=== PATIENT | female | born 1985 | race Caucasian/White ===

== ENCOUNTER → 2017-10-03 15:56 | Outpatient (CLI) | payer OTHER, SELFPAY ==
[2017-10-03 17:39] LABS: Hematocrit 36.3 % (37-47); Hemoglobin 12.2 g/dl (12.0-15.0); Mean Corp Hgb Conc 33.6 g/gl (32-36); Mean Corpuscular Hgb 30.9 pg (27.0-32.0); Mean Corpuscular Volume 91.9 fL (81-99); Mean Platelet Vol. 11.4 fl (6.2-12.0); Platelet Count 191 K/mm3 (150-450); RBC Distribution Width CV 13.4 % (11.6-14.6); RBC Distribution Width SD 44.7 fl (35.1-43.9); Red Blood Count 3.95 M/mm3 (4.2-5.4); White Blood Count 10.2 K/mm3 (4.4-11.0)
[2017-10-03 17:40] LABS: Scan Indicated on CBC? Y/N NO
[2017-10-03 18:37] LABS: ALB/GLOB Ratio 0.8 RATIO (0.9-2.4); AST(SGOT) 12 U/L (15-37); Alanine Aminotransfer ALT/SGPT 17 U/L (13-56); Albumin, Serum 3.1 g/dL (3.2-5.0); Alkaline Phosphatase 50 U/L (45-117); Anion Gap 9 (5-15); BUN 11 mg/dL (7-18); BUN/Creat Ratio 22.8 RATIO (10-20); Calcium,Total 8.6 mg/dL (8.5-10.1); Chloride 104 mmol/L (98-107); Creatinine, Serum 0.48 mg/dL (0.55-1.02); EST Glomerular Filtration Rate 158 mL/min (>60); Est Glom Filt Rate - Afr Amer 191 mL/min (>60); Globulin 3.7 g/dL (2.2-4.2); Glucose 83 mg/dL (74-106); Potassium 3.7 mmol/L (3.5-5.1); Protein, Total 6.8 g/dL (6.4-8.2); Sodium Level 139 mmol/L (136-145); Thyroid Stim Hormone (TSH) 3.31 uIU/mL (0.358-3.74)
== END ==
PROVIDERS: Visit Provider Obstetrics & Gynecology
DX: R00.2 Palpitations (principal); R00.0 Tachycardia, unspecified
CPT/HCPCS: 36415; 80053; 84443; 85027

== ENCOUNTER → 2017-10-03 16:10 | Outpatient (CLI) | payer OTHER, SELFPAY ==
--- NOTE | 2017-10-03 16:19 | EKG12_ITS ---
Test Reason : PRE OP Blood Pressure : / mmHG Vent. Rate : 086 BPM Atrial Rate : 086 BPM P-R Int : 158 ms QRS Dur : 076 ms QT Int : 360 ms P-R-T Axes : 047 045 -14 degrees QTc Int : 430 ms Sinus rhythm with marked sinus arrhythmia T wave abnormality, consider inferior ischemia Abnormal ECG Confirmed by FLORI BROWN, TOMAS ([id number]), editor at large CHUY APODACA ([id number] on 10/04/2017 1:53:34 PM Referred By: Joan Gregory Confirmed By:TOMAS RUBY MD
== END ==
PROVIDERS: Family Provider Internal Medicine; PCP Internal Medicine; Visit Provider Obstetrics & Gynecology
DX: Z34.82 Encounter for supervision of other normal pregnancy, second trimester (principal); R00.2 Palpitations; R00.0 Tachycardia, unspecified
CPT/HCPCS: 93005; 93225; 93226

== ENCOUNTER → 2017-10-31 12:50 | Outpatient (CLI) | payer OTHER, SELFPAY ==
--- NOTE | 2017-10-31 12:52 | ECHOD_ITS ---
Reason For Study: PALPITATIONS Procedure This was a 2D Doppler, Color Flow transthoracic echocardiogram. Exam performed in department. Left Ventricle Normal LV size. Left ventricular systolic function is normal. The estimated ejection fraction is 55 %. No evidence for diastolic dysfunction. No regional wall motion abnormalities noted. Right Ventricle Normal RV size. Normal systolic function. Atria Normal left atrium. Normal right atrium. Mitral Valve Normal mitral valve. Tricuspid Valve Normal tricuspid valve. Mild tricuspid valve insufficiency. Aortic Valve Normal aortic valve. Trisinus/trileaflet aortic valve. Pulmonic Valve Normal pulmonic valve. Great Vessels Normal aortic root. The pulmonary artery is normal size. Normal inferior vena cava. Pericardium/Pleural No pericardial effusion. MMode/2D Measurements & Calculations LVIDd: 4.3 cm IVSd: 0.85 cm Ao root diam: 2.8 cm LVIDs: 2.7 cm LVPWd: 0.97 cm LA dimension: 3.0 cm RVDd: 3.7 cm FS: 37.7 % LAV(MOD-bp): 42.9 ml EDV(MOD-sp4): 94.1 ml EDV(MOD-sp2): 82.9 ml LAV(MOD-bp) Indexed: 20.9 ml/m2 ESV(MOD-sp4): 28.8 ml EF(MOD-sp2): 54.4 % LAV(MOD-sp2): 35.2 ml EF(MOD-sp4): 69.4 % LAV(MOD-sp4): 46.3 ml SV(MOD-sp4): 65.2 ml SV(MOD-sp2): 45.1 ml LA A4 area: 17.6 cm2 RA A4 area: 14.6 cm2 Doppler Measurements & Calculations MV E max juany: 85.5 cm/sec Ao V2 max: 153.4 cm/sec LV V1 max: 126.6 cm/sec MV A max juany: 73.7 cm/sec Ao max P.4 mmHg LV V1 max P.4 mmHg MV E/A: 1.2 PA V2 max: 104.7 cm/sec TR max juany: 215.0 cm/sec TR max P.5 mmHg Interpretation Summary Normal LV size. Left ventricular systolic function is normal. The estimated ejection fraction is 55 %. No evidence for diastolic dysfunction. Structurally normal valves. Ordering Physician: Asa Nelson Referring Physician: hilario lackey Performed By: Senait Marks, MARCO, RVT
== END ==
PROVIDERS: Family Provider Internal Medicine; PCP Internal Medicine; Visit Provider Internal Medicine Cardiovascular Disease
DX: I47.2 Ventricular tachycardia (principal)
CPT/HCPCS: 93306

== ENCOUNTER → 2017-11-25 07:54 | Outpatient (CLI) | payer OTHER, SELFPAY ==
[2017-11-25 09:37] LABS: Cholesterol 241 mg/dL (200); Free T3 2.3 pg/mL (2.18-3.98); High Density Lipoprotein 84 mg/dL; T4 Free Direct 0.85 ng/dL (0.76-1.46); Thyroid Stim Hormone (TSH) 3.18 uIU/mL (0.358-3.74); Triglycerides 144 mg/dL; Very Low Density Lipoprotein 29 mg/dL (5-40)
== END ==
PROVIDERS: Family Provider Internal Medicine; PCP Internal Medicine; Visit Provider Internal Medicine
DX: E78.00 Pure hypercholesterolemia, unspecified (principal); E03.9 Hypothyroidism, unspecified
CPT/HCPCS: 36415; 80061; 84439; 84443; 84481

== ENCOUNTER → 2017-12-12 09:11 | Outpatient (CLI) | payer OTHER, SELFPAY ==
[2017-12-12 09:31] LABS: Hematocrit 34.4 % (37-47); Hemoglobin 11.5 g/dl (12.0-15.0); Mean Corp Hgb Conc 33.4 g/gl (32-36); Mean Corpuscular Hgb 30.6 pg (27.0-32.0); Mean Corpuscular Volume 91.5 fL (81-99); Mean Platelet Vol. 10.5 fl (6.2-12.0); Platelet Count 160 K/mm3 (150-450); RBC Distribution Width CV 13.5 % (11.6-14.6); RBC Distribution Width SD 44.4 fl (35.1-43.9); Red Blood Count 3.76 M/mm3 (4.2-5.4); White Blood Count 10.4 K/mm3 (4.4-11.0)
[2017-12-12 09:32] LABS: Scan Indicated on CBC? Y/N NO
[2017-12-12 09:56] LABS: Glucose Challenge Gest 1H 50g 114 mg/dL (70-140)
== END ==
PROVIDERS: Visit Provider Obstetrics & Gynecology
DX: Z34.83 Encounter for supervision of other normal pregnancy, third trimester (principal)
CPT/HCPCS: 36415; 82950; 85027

== ENCOUNTER → 2018-01-23 09:42 | Outpatient (CLI) | payer OTHER, SELFPAY ==
[2018-01-23 10:22] LABS: Hemoglobin 12.4 g/dl (12.0-15.0); Mean Corp Hgb Conc 33.5 g/gl (32-36); Mean Corpuscular Volume 89.4 fL (81-99); Mean Platelet Vol. 11.6 fl (6.2-12.0); Platelet Count 170 K/mm3 (150-450); RBC Distribution Width CV 13.7 % (11.6-14.6); RBC Distribution Width SD 44.7 fl (35.1-43.9); Red Blood Count 4.14 M/mm3 (4.2-5.4); Scan Indicated on CBC? Y/N NO
[2018-01-23 10:40] LABS: Partial Thromboplast Time 25.8 Seconds (24.1-36.2); Prothrombin Time (Protime)PT. 12.7 SECONDS (11.7-14.9)
[2018-01-23 10:58] LABS: AST(SGOT) 10 U/L (15-37); Alanine Aminotransfer ALT/SGPT 14 U/L (13-56); Creatinine, Serum 0.52 mg/dL (0.55-1.02); EST Glomerular Filtration Rate 146 mL/min (>60); Est Glom Filt Rate - Afr Amer 176 mL/min (>60); Uric Acid 3.9 mg/dL (2.6-6.0)
== END ==
PROVIDERS: Visit Provider Obstetrics & Gynecology
DX: O13.9 Gestational [pregnancy-induced] hypertension without significant proteinuria, unspecified trimester (principal); Z3A.00 Weeks of gestation of pregnancy not specified
CPT/HCPCS: 36415; 82565; 84450; 84460; 84550; 85027; 85610; 85730

== ENCOUNTER → 2018-01-24 12:13 | Outpatient (CLI) | payer OTHER, SELFPAY ==
[2018-01-24 13:09] LABS: Urine Protein (24 Hour) < 6.0 mg/dL (<11.9)
[2018-01-24 13:19] LABS: 24HR. UA Prot. Total Volume 5775 mL
== END ==
PROVIDERS: Visit Provider Obstetrics & Gynecology
DX: O13.9 Gestational [pregnancy-induced] hypertension without significant proteinuria, unspecified trimester (principal); Z3A.00 Weeks of gestation of pregnancy not specified

== ENCOUNTER → 2018-02-05 13:21 | Outpatient (CLI) | payer OTHER, SELFPAY ==
[2018-02-05 14:32] LABS: Group B Strep DNA By PCR POSITIVE (Negative); Probe Check PASS
== END ==
PROVIDERS: Visit Provider Obstetrics & Gynecology
DX: Z36.85 Encounter for antenatal screening for Streptococcus B (principal)
CPT/HCPCS: 87653

== ENCOUNTER 2018-03-05 07:05 | Inpatient (IN) | payer OTHER, SELFPAY ==
[2018-03-05] VITALS (10 sets, daily range): BP systolic 122–156; BP diastolic 79–112; PULSE 90–111; RESP 14–16; TEMP 36.6–37.7; O2SAT 95–98; BMI 44.4
[2018-03-05] MEDS: Lactated Ringers 1,000 ML 50 ML IV ×4 (07:30→19:23)
[2018-03-05] MEDS: Oxytocin 30 units/NS 500 ml 30 UNITS/500 ML IV.SOLN IV (07:45)
[2018-03-05 07:51] LABS: Hematocrit 36.6 % (37-47); Hemoglobin 12.1 g/dl (12.0-15.0); Mean Corp Hgb Conc 33.1 g/gl (32-36); Mean Corpuscular Hgb 30.1 pg (27.0-32.0); Mean Platelet Vol. 11.9 fl (6.2-12.0); Platelet Count 142 K/mm3 (150-450); RBC Distribution Width CV 14.3 % (11.6-14.6); Red Blood Count 4.02 M/mm3 (4.2-5.4)
[2018-03-05 07:52] LABS: Scan Indicated on CBC? Y/N NO
[2018-03-05] MEDS: hydrALAZINE 10 MG Tablet 20 MG PO (09:55)
[2018-03-05] MEDS: Magnesium Sulfate 20 GM/500 ML BAG IV ×2 (10:20→19:23)
[2018-03-05] MEDS: fentaNYL-bupivacaine (epidural) 100 ML BAG EPIDURAL ×2 (10:20→15:30)
[2018-03-05 11:39] LABS: ALB/GLOB Ratio 0.6 RATIO (0.9-2.4); AST(SGOT) 15 U/L (15-37); Alanine Aminotransfer ALT/SGPT 12 U/L (13-56); Albumin, Serum 2.4 g/dL (3.2-5.0); Alkaline Phosphatase 137 U/L (45-117); Anion Gap 9 (5-15); BUN 10 mg/dL (7-18); BUN/Creat Ratio 14.1 RATIO (10-20); Calcium,Total 8.8 mg/dL (8.5-10.1); Chloride 108 mmol/L (98-107); Creatinine, Serum 0.71 mg/dL (0.55-1.02); EST Glomerular Filtration Rate 101 mL/min (>60); Est Glom Filt Rate - Afr Amer 122 mL/min (>60); Estimated Creatinine Clearance 101.41 ml/min; Globulin 3.8 g/dL (2.2-4.2); Glucose 79 mg/dL (74-106); Protein, Total 6.2 g/dL (6.4-8.2); Sodium Level 138 mmol/L (136-145)
[2018-03-05] MEDS: Oxytocin 30 units/NS 500 ml 30 UNITS/500 ML IV.SOLN 334 UNITS IV (14:40)
[2018-03-05] MEDS: Oxytocin 30 units/NS 500 ml 30 UNITS/500 ML IV.SOLN 167 UNITS IV (15:10)
--- NOTE | 2018-03-05 17:12 | PCM.OB.VAG ---
Vaginal Delivery Maternal Presentation: Medically Indicated Induction 39 6/7 wk PIH vs preeclampsia Method of Induction: Pitocin, Amniotomy Medical Reason for Induction: Gestational Hypertension - preeclampsia by BP criteria. Amniotic Membrane Rupture Type: Artificial Amniotic Fluid Description: Clear Final LUL: 03/06/18 Final LUL Source: US <20 weeks Gestational age: 39 Weeks and 6 Days Date of Procedure: 03/05/18 Pre-Operative Diagnosis: 39 6/7 wk EGA induction PIH Post-Operative Diagnosis: Same Surgery/ Procedure Performed: Spontaneous Vaginal Delivery Type of Anesthesia: Epidural Description of Procedure: of a [place] viable male over intact perineum to laceration. Head delivered KARLEE. Mild shoulder dystocia relieved by Gerry's maneuver, maternal expulsive effort, gentle lateral traction, and forward rotation of anterior shoulder. Infant to maternal abdomen for stimulation. End stage meconium noted. Routine cord gases collected and sent. PP exam; 2nd deg vaginal laceration at posterior introitus, Repaired to hemostatic and intact under epidural with 3-0 vicryl No other lacerations noted. Placenta delivered by spont expulsion, expression. 3V cord, normal appearing and intact with trailing membranes EBL 250 cc Pt and infant tolerated delivery well. To recovery in stable condition. Magnesium sulfate for 24 hr planned for 2/2 HTN in labor. Presentation: Vertex, KARLEE Placental Delivery Description: Spontaneous, Expressed Cord Vessel Description: 3 Vessels Nuchal Cord Compression: Without compression Cord Gases drawn per routine: ABG, VBG Cord Entanglement: None Estimated Blood Loss: 250 A gender: Male (1 minute): 8 (5 minute): 9 Episiotomy Description: None Laceration: Midline, Vaginal Extension/lac, 2nd degree Medications given after delivery: IV Pitocin Complications: None
--- NOTE | 2018-03-05 17:22 | DCINST_ITS ---
Discharge Diet: No Restrictions Discharge Activity: May Shower, May Take a Tub Bath May resume sexual activity in: 4-6 weeks Additional Activity Instructions:: Nothing in the vagina for 4-6 weeks. You may return to work/school in 6 weeks. Additional Instructions: If you experience any of the following, contact your healthcare provider. * Bleeding that soaks a pad every hour for 2 hours * Fever 100.4 or higher * Unrelieved abdominal pain * Problems urinating (including inability to urinate or burning while urinating) . * Visual changes * Severe headache * Flu-like symptoms * Pain or redness in one of both of your breasts * Pain, warmth, tenderness or swelling in your legs, especially the calf area * Frequent nausea and vomiting * Symptoms of depression or anxiety If you experience any of the following, call 911 or go to the nearest Emergency Room. * Chest pain * Problems breathing * Seizure activity * Partial or complete paralysis of a body part, slurred speech, weakness or drooping of the face, or a sudden inability to walk or hold your balance Allergies/Adverse Reactions: Allergies No Known Allergies Allergy (Verified 03/05/18 07:40) Medications to take at Discharge Vits [Prenatabs FA] 1 tab PO DAILY 06/10/15 cetirizine 10 mg capsule 10 mg PO QDAY 10/11/17 cholecalciferol (vitamin D3) 1,000 unit capsule 1,000 unit PO QDAY cap vitamin B complex capsule 1 cap PO QDAY 10/11/17 lactobacillus rhamnosus R0011 20 billion cell capsule cell PO 02/15/18 levothyroxine 100 mcg capsule 112 mcg PO QDAY cap 02/15/18 Please Follow Up With: Joan Gregory MD - [phone] When: Call to make an appointment with your doctor in 2 weeks. If you had elevated Blood Pressure you will need to be seen in 2 weeks. Primary Care Physician: Margret Brennan DO [Primary Care Provider] - Test Results: Test results from this visit will be discussed in further detail at your follow- up appointment, if applicable.
[2018-03-05] MEDS: Acetaminophen 500 MG Tablet 1000 MG PO (18:23)
[2018-03-05] MEDS: Ibuprofen 600 MG Tablet PO (21:32)
[2018-03-06] VITALS (11 sets, daily range): BP systolic 133–145; BP diastolic 83–102; PULSE 80–98; RESP 16; TEMP 36.2–36.9; O2SAT 96–97
[2018-03-06] MEDS: Levothyroxine 112 MCG Tablet PO (05:37)
[2018-03-06 06:18] LABS: Hematocrit 33.2 % (37-47); Hemoglobin 11.1 g/dl (12.0-15.0); Mean Corp Hgb Conc 33.4 g/gl (32-36); Mean Corpuscular Hgb 30.6 pg (27.0-32.0); Mean Corpuscular Volume 91.5 fL (81-99); Mean Platelet Vol. 12.1 fl (6.2-12.0); Platelet Count 127 K/mm3 (150-450); RBC Distribution Width CV 14.5 % (11.6-14.6); RBC Distribution Width SD 47.1 fl (35.1-43.9); Red Blood Count 3.63 M/mm3 (4.2-5.4); White Blood Count 11.4 K/mm3 (4.4-11.0)
[2018-03-06 06:22] LABS: Scan Indicated on CBC? Y/N NO
[2018-03-06] MEDS: 0.9% Saline Lock 10 ML Syringe IV (07:44)
--- NOTE | 2018-03-06 08:16 | PN.OBGYN_ITS ---
Subjective: PPD#1 induction at 39 6/7 wk Doing well. No PIH sx. BPs remain a little labile. On Magnesium Sulfate 2 gm/ hr overnight. Excellent urine output. Pain minimal. Baby is in SCN 2/2 sugars not nursing well yet. States colostrum present, no milk. - Physical Exam General: Alert, Oriented x3, Cooperative, No apparent distress HEENT: Atraumatic Neck: Supple Abdomen: Soft - NT, Fundus firm at umbilicus minus 1-2 cm. Neurological: Cranial nerves II-XII grossly intact Psych/Mental Status: Normal Affect Vital Signs Temp Pulse Resp BP Pulse Ox 97.2 F L 94 16 138/98 H 96 03/06/18 06:35 03/06/18 06:35 03/06/18 06:35 03/06/18 06:35 03/06/18 06:35 Oxygen Delivery Method Room Air Weight: 121.291 kg Body Mass Index (BMI) 44.4 Intake and Output for Last 24 Hours 03/04/18 03/05/18 03/06/18 23:59 23:59 23:59 Intake Total 4853 / 4853 1350 / 1350 Output Total 3175 / 3175 1925 / 1925 Balance 1678 / 1678 -575 / -575 Laboratory Tests Past 24 Hrs 03/05/18 03/05/18 03/05/18 07:30 11:02 11:02 WBC RBC Hgb Hct MCV MCH MCHC RDW RDW Differential Plt Count MPV Sodium 138 Potassium 4.0 Chloride 108 H Carbon Dioxide 21.0 Anion Gap 9 BUN 10 Creatinine 0.71 Estim Creat Clear Calc 101.41 Est GFR (MDRD) Af Amer 122 Est GFR (MDRD) Non-Af 101 BUN/Creatinine Ratio 14.1 Glucose 79 Calcium 8.8 Total Bilirubin 0.20 AST 15 ALT 12 L Alkaline Phosphatase 137 H Total Protein 6.2 L Albumin 2.4 L Globulin 3.8 Albumin/Globulin Ratio 0.6 L U Random Total Protein 9.0 Blood Type AB POSITIVE Antibody Screen NEGATIVE 03/06/18 05:50 WBC 11.4 H RBC 3.63 L Hgb 11.1 L Hct 33.2 L MCV 91.5 MCH 30.6 MCHC 33.4 RDW 14.5 RDW Differential 47.1 H Plt Count 127 L MPV 12.1 H Sodium Potassium Chloride Carbon Dioxide Anion Gap BUN Creatinine Estim Creat Clear Calc Est GFR (MDRD) Af Amer Est GFR (MDRD) Non-Af BUN/Creatinine Ratio Glucose Calcium Total Bilirubin AST ALT Alkaline Phosphatase Total Protein Albumin Globulin Albumin/Globulin Ratio U Random Total Protein Blood Type Antibody Screen Medical Necessity - Tobacco Use Smoking Status: Former smoker Assessment/Plan All Active Problems (Last Reviewed 02/15/18 @ 13:46 by Asa Nelson MD) Hx of appendectomy (Resolved) Hx of laparoscopy (Resolved) Abnormal electrocardiogram (Acute) Paroxysmal ventricular tachycardia (Acute) Premature ventricular complex (Acute) PPD#1 PIH, mild preeclampsia. Stable . BPs remain a little labile. Discontinue Magnesium sulfate and Malik. D/C saline lock Anticipate dischg tomorrow. Baby is SCN. Reviewed hotel status if baby is not released. Routine pp orders.
[2018-03-06] MEDS: Labetalol 100 MG Tablet PO ×2 (10:18→21:02)
[2018-03-06] MEDS: Prenatal Vits Tablet 1 TABLET PO (12:35)
[2018-03-06] MEDS: Acetaminophen 500 MG Tablet 1000 MG PO (13:55)
[2018-03-07] VITALS (7 sets, daily range): BP systolic 133–146; BP diastolic 90–106; PULSE 84–91; RESP 16–18; TEMP 36.5–37.2; O2SAT 95–98
[2018-03-07] MEDS: Levothyroxine 112 MCG Tablet PO (06:15)
--- NOTE | 2018-03-07 08:09 | PCM.PN.OB ---
Objective: PPD#2 Induction preeclampsia (vs PIH, no significant proteinuria) Stable. Pumping. Baby is SCN. No c/o. Pain control adequate. no PIH sx - Physical Exam General: Alert, Oriented x3, Cooperative, No apparent distress HEENT: Atraumatic Neck: Supple Neurological: Cranial nerves II-XII grossly intact Psych/Mental Status: Normal Affect Vital Signs Temp Pulse Resp BP Pulse Ox 97.9 F 88 18 146/106 H 95 03/07/18 07:24 03/07/18 07:24 03/07/18 07:24 03/07/18 07:24 03/07/18 07:24 Oxygen Delivery Method Room Air Weight: 121.291 kg Body Mass Index (BMI) 44.4 Intake and Output for Last 24 Hours 03/05/18 03/06/18 03/07/18 23:59 23:59 23:59 Intake Total 4853 / 4853 1862 / 1862 Output Total 3175 / 3175 4625 / 4625 Balance 1678 / 1678 -2763 / -2763 Medical Necessity - Tobacco Use Smoking Status: Former smoker Assessment/Plan All Active Problems (Last Reviewed 02/15/18 @ 13:46 by Asa Nelson MD) Hx of appendectomy (Resolved) Hx of laparoscopy (Resolved) Abnormal electrocardiogram (Acute) Paroxysmal ventricular tachycardia (Acute) Premature ventricular complex (Acute) PPD#2 PIH, mild preeclampsia. Stable . BPs remain a labile. continue BID labetalol. Dischg today. Baby is SCN. To hotel today. RX sent to pharmacy for labetalol bid. Beatris to RTO in 2 wk for postop f/u BP
[2018-03-07] MEDS: Acetaminophen 500 MG Tablet 1000 MG PO (08:33)
[2018-03-07] MEDS: Labetalol 100 MG Tablet PO ×2 (09:50→21:55)
[2018-03-07] MEDS: Prenatal Vits Tablet 1 TABLET PO (09:50)
== END 2018-03-07 22:00 | disposition home or self-care (01) | DRG 774 ==
PROVIDERS: Admitting Provider Obstetrics & Gynecology; Family Provider Internal Medicine; PCP Internal Medicine; Visit Provider Obstetrics & Gynecology
DX: O14.04 Mild to moderate pre-eclampsia, complicating childbirth (principal); O99.42 Diseases of the circulatory system complicating childbirth; I47.2 Ventricular tachycardia; Z37.0 Single live birth; Z3A.39 39 weeks gestation of pregnancy; O77.0 Labor and delivery complicated by meconium in amniotic fluid; O70.1 Second degree perineal laceration during delivery; O66.0 Obstructed labor due to shoulder dystocia; Z87.891 Personal history of nicotine dependence; O99.820 Streptococcus B carrier state complicating pregnancy; I49.3 Ventricular premature depolarization; O99.284 Endocrine, nutritional and metabolic diseases complicating childbirth; E03.9 Hypothyroidism, unspecified
CPT/HCPCS: 59025; 59050; 80053; 84156; 85027; 86850; 86900; 99218; J7120; A4216; G0378; J0290

== ENCOUNTER → 2018-04-20 15:43 | Outpatient (CLI) | payer OTHER, SELFPAY ==
[2018-04-20 16:07] LABS: Absolute Lymphocyte Count 2.28 X10^3/ul (0.83-4.51); Absolute Neutrophil Count 4.5 X10^3/uL (2.0-7.7); Basophil# 0.01 X10^3/uL; Basophil% 0.1 % (0-1); Eosinophil# 0.52 X10^3/uL; Eosinophils% 6.7 % (0-5); Hematocrit 38.7 % (37-47); Lymphocyte # 2.28 X10^3/ul (4.0); Lymphocyte % 29.6 % (19-41); Mean Corp Hgb Conc 33.6 g/gl (32-36); Mean Corpuscular Hgb 29.6 pg (27.0-32.0); Mean Corpuscular Volume 88.2 fL (81-99); Mean Platelet Vol. 10.6 fl (6.2-12.0); Monocyte% 5.2 % (0-10); Neutrophil % 58.4 % (47-70); Platelet Count 199 K/mm3 (150-450); RBC Distribution Width CV 12.8 % (11.6-14.6); RBC Distribution Width SD 41.4 fl (35.1-43.9); Red Blood Count 4.39 M/mm3 (4.2-5.4); White Blood Count 7.7 K/mm3 (4.4-11.0)
[2018-04-20 16:16] LABS: ALB/GLOB Ratio 0.9 RATIO (0.9-2.4); AST(SGOT) 21 U/L (15-37); Alanine Aminotransfer ALT/SGPT 35 U/L (13-56); Albumin, Serum 3.7 g/dL (3.2-5.0); Alkaline Phosphatase 94 U/L (45-117); Amylase 60 U/L (25-115); Anion Gap 9 (5-15); BUN 13 mg/dL (7-18); BUN/Creat Ratio 15.8 RATIO (10-20); Chloride 107 mmol/L (98-107); Creatinine, Serum 0.82 mg/dL (0.55-1.02); EST Glomerular Filtration Rate 85 mL/min (>60); Est Glom Filt Rate - Afr Amer 102 mL/min (>60); Globulin 4.1 g/dL (2.2-4.2); Glucose 74 mg/dL (74-106); Lipase 217 U/L (73-393); Potassium 4.2 mmol/L (3.5-5.1); Protein, Total 7.8 g/dL (6.4-8.2); Sodium Level 142 mmol/L (136-145)
[2018-04-20 16:21] LABS: POSITIVE COUNT NO; POSITIVE DIFFERENTIAL NO; POSITIVE MORPHOLOGY NO
== END ==
PROVIDERS: Family Provider Internal Medicine; PCP Internal Medicine; Visit Provider Nurse Practitioner
DX: R10.9 Unspecified abdominal pain (principal)
CPT/HCPCS: 36415; 74018; 80053; 82150; 83690; 85025

== ENCOUNTER → 2018-09-21 16:19 | Outpatient (CLI) | payer OTHER, SELFPAY ==
[2018-09-21 15:38] VITALS: BMI 34.6
[2018-09-21 17:37] LABS: Anion Gap 8 (5-15); BUN 19 mg/dL (7-18); BUN/Creat Ratio 19.9 RATIO (10-20); Calcium,Total 9.2 mg/dL (8.5-10.1); Chloride 106 mmol/L (98-107); Creatinine, Serum 0.96 mg/dL (0.55-1.02); EST Glomerular Filtration Rate 71 mL/min (>60); Est Glom Filt Rate - Afr Amer 86 mL/min (>60); Glucose 83 mg/dL (74-106); Potassium 3.7 mmol/L (3.5-5.1); Sodium Level 140 mmol/L (136-145); Thyroid Stim Hormone (TSH) < 0.01 uIU/mL (0.358-3.74)
[2018-09-24 11:18] LABS: Free T3 2.4 pg/mL (2.18-3.98); T4 Free Direct 1.46 ng/dL (0.76-1.46)
== END ==
PROVIDERS: Family Provider Internal Medicine; PCP Internal Medicine; Referring Provider Internal Medicine Cardiovascular Disease; Visit Provider Internal Medicine Cardiovascular Disease
DX: I10 Essential (primary) hypertension (principal)
CPT/HCPCS: 36415; 80048; 84439; 84443; 84481

== ENCOUNTER → 2019-10-09 | Outpatient (CLI) | payer OTHER, SELFPAY ==
[2018-12-27 14:52] VITALS: BMI 34.1
[2019-10-11 05:44] LABS: HPV APTIMA, High Risk Negative (Negative)
== END | disposition home or self-care (01) ==
LOC: LABSPEC 09:30
PROVIDERS: Visit Provider Obstetrics & Gynecology
DX: Z12.4 Encounter for screening for malignant neoplasm of cervix (principal)
CPT/HCPCS: 87624; 88175; G0145

== ENCOUNTER → 2019-10-25 16:07 | Outpatient (CLI) | payer OTHER, SELFPAY ==
[2019-10-25 15:40] VITALS: BMI 32.4
[2019-10-25 17:19] LABS: T4 Total, Thyroxin 9.4 ug/dL (4.8-13.9); Thyroid Stim Hormone (TSH) 1.07 uIU/mL (0.358-3.74)
== END ==
PROVIDERS: PCP Internal Medicine; Referring Provider Internal Medicine Cardiovascular Disease; Visit Provider Internal Medicine Cardiovascular Disease
DX: I10 Essential (primary) hypertension (principal)
CPT/HCPCS: 36415; 84436; 84443

== ENCOUNTER → 2025-02-24 | Outpatient (CLI) | payer OTHER, SELFPAY ==
--- NOTE | 2025-02-24 14:59 | BI_ITS ---
EXAM: SCRN MAMM (CAD)W/MARITZA BILAT DATE: 02/24/2025 CLINICAL HISTORY: F, Age 39 y/o , SCREENING TECHNIQUE: SCRN MAMM (CAD)W/MARITZA BILAT COMPARISON: None available FINDINGS: TISSUE DENSITY: The breasts are heterogeneously dense, which may obscure small masses. Bilateral Breast Mammographic Findings: No suspicious masses, calcifications or other abnormalities are identified. BI/SCRN MAMM (CAD)W/MARITZA BILAT IMPRESSION: No mammographic evidence of malignancy in either breast OVERALL FINAL ASSESSMENT BI-RADS 1: NEGATIVE. RECOMMENDATION: Routine annual follow-up in 1 Year A letter with findings and recommendations will be mailed to the patient. Reading Location: [id number]
== END | disposition home or self-care (01) ==
LOC: OPBI 14:53
PROVIDERS: PCP Internal Medicine; Referring Provider Obstetrics & Gynecology; Visit Provider Obstetrics & Gynecology
DX: Z12.31 Encounter for screening mammogram for malignant neoplasm of breast (principal)
CPT/HCPCS: 77063; 77067

== ENCOUNTER → 2025-03-03 | Outpatient (CLI) | payer OTHER, SELFPAY ==
--- NOTE | 2025-03-03 13:03 | US_ITS ---
PROCEDURE: PELVIC W/ TRANSVAGINAL 03/03/2025 REASON FOR EXAM: VAGINAL LESION IN POSTERIOR FORNIX R/O ENDOMETRIOSIS TECHNIQUE: PELVIC W/ TRANSVAGINAL COMPARISON: None. FINDINGS: Measurements: Uterus: 8.8 x 4.4 x 5.2 cm for volume of 104.9 mL Endometrial Thickness: 1.1 cm Right Ovary: Not visualized due to shadowing bowel gas Left Ovary: 2.8 x 2.2 x 1.8 cm for volume of 5.7 mL Uterus: Anteverted. Normal contour and myometrial echotexture. Nabothian cysts at the cervix Endometrium: Normal echotexture. Right ovary: Not visualized due to shadowing bowel gas Left ovary: Normal size and echotexture. Dominant follicle measuring 1.7 cm. Cul-de-sac: No free intraperitoneal fluid identified. Color Doppler: Normal color flow doppler signal at both ovaries. US/Pelvic w/ Transvaginal IMPRESSION: The vaginal lesion in the given history is not identified by the technologist o n this exam. Consider MRI if there is persistent clinical concern. Reading Location: [id number]
== END | disposition home or self-care (01) ==
PROVIDERS: PCP Internal Medicine; Referring Provider Obstetrics & Gynecology; Visit Provider Obstetrics & Gynecology
DX: N89.8 Other specified noninflammatory disorders of vagina (principal)
CPT/HCPCS: 76830; 76856

== ENCOUNTER → 2025-04-15 | Outpatient (CLI) | payer OTHER, SELFPAY | END | disposition home or self-care (01) | LOC: MTLAB 09:39 | PROVIDERS: PCP Internal Medicine; Referring Provider Internal Medicine; Visit Provider Internal Medicine | DX: E78.5 Hyperlipidemia, unspecified (principal) | CPT/HCPCS: 36415 ==

== ENCOUNTER 2025-05-26 13:16 | Outpatient (CLI) | payer OTHER, SELFPAY ==
--- NOTE | 2025-05-26 13:21 | CT_ITS ---
PROCEDURE: LIMITED CHEST CT CARDIAC ONLY 05/26/2025 REASON FOR EXAM: HYPERCHOLESTEREMIA TECHNIQUE: Procedure Code: [id number] Modality: CT Procedure: LIMITED CHEST CT CARDIAC ONLY Coronal and Sagittal reconstruction series were provided. CONTRAST: None One or more dose reduction techniques were used (e.g., Automated exposure control, adjustment of the mA and/or kV according to patient size, use of iterative reconstruction technique). RADIATION DOSE SUMMARY: CTDlvol: 12.19 mGy DLP: 219.42 mGycm COMPARISON: None FINDINGS: Mild degree of atherosclerotic plaque formation of the aortic arch. No significant coronary artery calcification is seen. The heart is nonenlarged. The lungs are clear. CT/Limited Chest CT Cardiac Only IMPRESSION: No coronary artery calcification is seen. Reading Location: [place] [id number]
--- NOTE | 2025-05-26 18:45 | CA.SCORE ---
Calcium Scoring Date of Study:: 05/26/25 Indications Indications: Screening Coronary Calcium Scoring: High-resolution Computed Tomographic imaging of the chest was performed on [05/26/25 ], with particular attention paid to the coronary arteries. Images from the examination were analyzed for the presence and extent of coronary artery calcification , using coronary calcium quantification software. The patient tolerated the procedure well and there were no complications. The results of the coronary calcification analysis are provided below. Findings Coronary Artery Left Main (LM): 0 Left Anterior Descending (LAD): 0 Left Circumflex (LCX): 0 Right Coronary Artery (RCA): 0 Total Agatston Score: 0 Percentile Rankin Calcium Scoring Interpretation: Different methods to categorize the overall amount of coronary plaque. Overall amount CAC SIS Visual of coronary plaque P1 Mild -100 <2 1-2 vessels with mild amount of plaque P2 Moderate 101-300 3-4 1-2 vessels with moderate amount, 3 vessels with mild amount of plaque P3 Severe 301-999 5-7 3 vessels with moderate amount, 1 vessel with severe amount of plaque P4 Extensive >1000 >8 2-3 vessels with severe amount of plaque Conclusion: No atherosclerotic plaquing noted
== END 2025-05-26 23:59 | disposition home or self-care (01) ==
LOC: CT 13:19
PROVIDERS: PCP Internal Medicine; Referring Provider Internal Medicine; Visit Provider Internal Medicine
DX: E78.00 Pure hypercholesterolemia, unspecified (principal); I70.0 Atherosclerosis of aorta
CPT/HCPCS: 75571; 76380